=== PATIENT | female | born 1985 | race Caucasian/White ===

== ENCOUNTER → 2018-07-17 | Outpatient (CLI) | payer BC ==
[2018-07-17 10:38] LABS: Basophils % (A) 0 %; Eosinophils # (A) 0.1 k/uL (0-0.7); Eosinophils % (A) 2 %; HCT 38.6 % (34.0-46.0); HGB 12.4 gm/dL (11.4-16.0); Lymphocytes # (A) 1.4 k/uL (1.0-4.8); Lymphocytes % (A) 19 %; MCV 84.2 fL (80.0-100.0); Mean Platelet Volume 7.2; Monocytes # (A) 0.4 k/uL (0-1.0); Monocytes % (A) 5 %; Neutrophils # (A) 5.1 k/uL (1.3-7.7); Neutrophils % (A) 73 %; Platelet Count 323 k/uL (150-450); RBC 4.58 m/uL (3.80-5.40); RDW 13.5 % (11.5-15.5); WBC 7.1 k/uL (3.8-10.6)
== END ==
LOC: LABPAT 09:09
PROVIDERS: ATTEND Obstetrics & Gynecology
DX: Z01.818 Encounter for other preprocedural examination (principal)
CPT/HCPCS: 36415; 85025

== ENCOUNTER 2018-07-19 06:23 | Day surgery (SDC) | payer BC, OTHER ==
[2018-07-17 10:32] VITALS: BMI 26.5
--- NOTE | 2018-07-18 12:48 | P.HPOB ---
History of Present Illness H&P Date: 07/18/18 Chief Complaint: Missed . This patient is a pleasant 33-year-old 3 para 2 female estimated date of confinement 02/12/2019 estimated gestational age 10 weeks who's had serial ultrasounds showing an 8 week intrauterine without cardiac activity. His had no bleeding or pain at this time is requesting suction D&C for treatment. Review of Systems Genitourinary: Reports Menstruation: Reports amenorrhea Past Medical History Past Medical History: No Reported History Additional Past Medical History / Comment(s): LMP 05/08/18- MISSED AB History of Any Multi-Drug Resistant Organisms: None Reported Past Surgical History: Cholecystectomy Additional Past Surgical History / Comment(s): CHANEL (2009) Past Anesthesia/Blood Transfusion Reactions: No Reported Reaction Past Psychological History: No Psychological Hx Reported Smoking Status: Former smoker Past Alcohol Use History: None Reported Additional Past Alcohol Use History / Comment(s): QUIT SMOKING 2013, SMOKED FOR A COUPLE YEARS. Past Drug Use History: None Reported - Past Family History Mother Family Medical History: No Reported History Medications and Allergies Home Medications Medication Instructions Recorded Confirmed Type Acetaminophen [Tylenol Extra 1,000 mg PO DIRECTED PRN 07/17/18 07/17/18 History Strength] Allergies Allergy/AdvReac Type Severity Reaction Status Date / Time Penicillins AdvReac Rash/Hives Verified 07/17/18 10:14 Exam - OBG Physical Exam Abdomen: bowel sounds normal, no diffuse tenderness, no bruit present, no guarding noted, no hepatomegaly, no splenomegaly, no mass Vulva: both: normal Vagina: normal moisture, no discharge Cervix: no lesion, no discharge Uterus: enlarged (Uterus is consistent with 8 weeks) Results Patient has had serial ultrasounds showing a nonviable 8 week intrauterine . Blood type is B+. Assessment and Plan Assessment: This is a pleasant 33-year-old 3 para 2 female with known missed approximately 8 weeks gestation who is requesting suction D&C for treatment. Patient I discussed the surgery in detail including risks of infection, bleeding, possible uterine perforation. All the patient's questions been answered and a written consent is obtained. (1) Missed Status: Acute Code(s): O02.1 - MISSED SNOMED Code(s): 64891913
[~2018-07-19 06:23] MED LIST: DEXAMETHASONE SOD PHOSPHATE 10 MG/ML 1 ML VIAL IV ONE; HYDROmorphone 0.5 MG/0.5 ML SYRINGE IVP PRN; LACTATED RINGERS 1,000 ML IV SCH; LIDOCAINE 1% 20 ML VIAL (10MG/ML) FOR IV START INTRADERMA PRN; ONDANSETRON 4 MG/2 ML VIAL IVP ONE; Pre Op ABX Message 1 EACH MISC MISCELLANE ONE; SCOPOLAMINE 1.5MG/72HR PATCH TRANSDERM ONE
[2018-07-19] MEDS ORDERED: LACTATED RINGERS 1,000 ML IV ONE (06:48)
[2018-07-19] MEDS ORDERED: MIDAZOLAM (PF) 2 MG/2 ML VIAL IVP ONE (06:48)
[2018-07-19] MEDS ORDERED: MIDAZOLAM 2 MG/2 ML VIAL ONE (07:17)
[2018-07-19] MEDS ORDERED: KETOROLAC 30 MG/ML 1 ML VIAL ONE (07:17)
[2018-07-19] MEDS ORDERED: SUCCINYLCHOLINE CHLORIDE 100 MG/5 ML SYR IV ONE (07:17)
[2018-07-19] MEDS ORDERED: LIDOCAINE 1% INJ 10MG/ML (20 ML MDV) ONE (07:17)
[2018-07-19] MEDS ORDERED: PROPOFOL 10 MG/ML 20 ML VIAL IV ONE (07:17)
--- NOTE | 2018-07-19 07:49 | P.OP ---
Date of Procedure: 07/19/18 Preoperative Diagnosis: Missed 8 weeks' Postoperative Diagnosis: Same Procedure(s) Performed: Suction D&C Anesthesia: LUIGIA Surgeon: Thanh Ba Estimated Blood Loss (ml): 100 Urine output (ml): 50 Pathology: other (Uterine contents) Condition: stable Disposition: PACU Operative Findings: This patient had a generous amount of uterine tissue consistent with products of conception. Description of Procedure: This patient is taken to the operating room where she is laid in the supine position. She subsequently undergoes general endotracheal anesthesia without incident. With an adequate level of anesthesia she's placed in the dorsal lithotomy position. She has a vaginal perineal prep and drape. Examination under anesthesia shows a mid position uterus approximately 7 weeks size. I first drain the bladder for approximately 50 mL of clear urine. Weighted speculum placed in the posterior vagina and the anterior lip of cervix was grabbed with an Allis clamp. Cervix is gently dilated to allow a 9 curved suc tion curette easily and uterine cavity. Suction is applied and large amount of tissue is removed. Multiple passes are made until no further tissue was noted. A gentle sharp curettage of all 4 quadrants is then done again no further tissue was noted. Final pass with the suction curet shows decreased bleeding and no tissue. This point the procedure is ended. The Allis clamp and weighted specul um removed. All counts are correct 3. There are no complications. Patient is awakened from anesthesia and taken to the recovery room in satisfactory condition.
[2018-07-19 10:35] VITALS: BP 98/65; PULSE 73; RESP 16; TEMP 97.9
[2018-07-19] MEDS ORDERED: Rhogam IMMUNE GLOBULIN 1,500 UNIT/1 ML IM ONE (10:58)
== END 2018-07-19 11:18 | disposition home or self-care (01) ==
LOC: OR 06:23
PROVIDERS: ATTEND Obstetrics & Gynecology
DX: O02.1 Missed abortion (principal); Z3A.01 Less than 8 weeks gestation of pregnancy; Z90.49 Acquired absence of other specified parts of digestive tract; Z87.891 Personal history of nicotine dependence; Z88.0 Allergy status to penicillin
CPT/HCPCS: 86900; 86901; 88305; 86850; 59820; J2791; J2250 ×2; J1100; J2405; J2001; J1885; J0330; J2704

== ENCOUNTER 2021-08-22 05:45 | Inpatient (IN) | payer BC, OTHER ==
--- NOTE | 2021-08-21 17:56 | P.HPOB ---
History of Present Illness H&P Date: 08/21/21 Chief Complaint: Requested induction of labor This patient is a pleasant 36 yr female EDC 08/28/2021 estimated gestational age 39 1/7 weeks who presents to labor and delivery for requested induction of labor. Patient's is complicated by advanced maternal age. Patient had normal Materni T21 (46 XX) but did not desire MFM referral. She has had normal growth ultrasounds and testing. History of positive GBS with prior . Review of Systems Genitourinary: Reports Menstruation: Reports amenorrhea Past Medical History Past Medical History: No Reported History Additional Past Medical History / Comment(s): 2 previous vaginal deliveries. History of Any Multi-Drug Resistant Organisms: None Reported Past Surgical History: Cholecystectomy Past Anesthesia/Blood Transfusion Reactions: No Reported Reaction Past Psychological History: No Psychological Hx Reported Past Alcohol Use History: None Reported Past Drug Use History: None Reported - Past Family History Mother Family Medical History: No Reported History Medications and Allergies Home Medications Medication Instructions Recorded Confirmed Type Acetaminophen [Tylenol Extra 1,000 mg PO DIRECTED PRN 07/17/18 07/19/18 History Strength] Ibuprofen [Motrin] 600 mg PO Q6HR PRN #40 tab 07/19/18 Rx Allergies Allergy/AdvReac Type Severity Reaction Status Date / Time Penicillins AdvReac Rash/Hives Verified 07/19/18 07:12 Exam - OBG Physical Exam Abdomen: bowel sounds normal, no diffuse tenderness, no bruit present, no guarding noted, no hepatomegaly, no splenomegaly, no mass Vulva: both: normal Vagina: normal moisture, no discharge Cervix: no lesion (Cervix is 2 and soft), no discharge Uterus: enlarged (Fundal height is 39 cm) Results labs: B weak D (recommended Rhogam; given x 2 due to 1st trimester bleeding); [id number] neg, Glucola 130, GBS negative, most recent ultrasound (07/28) shows vtx 5#11oz (25-50%); Materni T21 46X,X Assessment and Plan Assessment: This is a pleasant 36 yr female estimated gestational age 39 1/7 weeks who presents to L&D for requested induction of labor. Plan is induction of labor and anticipate NVD. (1) 39 weeks gestation of Status: Acute Code(s): Z3A.39 - 39 WEEKS GESTATION OF SNOMED Code(s): 01928924 (2) Elderly multigravida Status: Acute Code(s): O09.529 - SUPERVISION OF ELDERLY MULTIGRAVIDA, UNSPECIFIED TRIMESTER SNOMED Code(s): 161100219 (3) Elective induction of labor planned Status: Acute Code(s): ROW1176 - SNOMED Code(s): 948604110
[2021-08-22] MEDS ORDERED: TERBUTALINE 1 MG/ML VIAL SQ PRN (05:59)
[2021-08-22] MEDS ORDERED: LIDOCAINE 1% (PF) 10 MG/ML (30 ML SDV) SQ PRN (05:59)
[2021-08-22] MEDS ORDERED: CARBOPROST TROMETHAMINE 250 MCG/ML 1 ML AMP IM PRN (05:59)
[2021-08-22] MEDS ORDERED: METHYLERGONOVINE 0.2 MG/ML 1 ML AMP IM PRN (05:59)
[2021-08-22] MEDS ORDERED: OXYTOCIN 30 UNITS/500 ML NS 30 UNIT in SALINE 1 500ML.BAG IV SCH ×2 (05:59→13:06)
[2021-08-22] MEDS ORDERED: OXYTOCIN 10 UNIT/ML 1 ML VIAL IM PRN (05:59)
[2021-08-22] MEDS ORDERED: CLINDAMYCIN 900 MG in DEXTROSE 5% IN WATER 50 ML IVPB SCH ×2 (06:00)
[2021-08-22] MEDS: LACTATED RINGERS 1,000 ML IV SCH ×2 (06:31→10:11)
[2021-08-22 07:44] LABS: Basophils % (A) 0 %; Eosinophils # (A) 0.1 k/uL (0-0.7); Eosinophils % (A) 1 %; HCT 35.6 % (34.0-46.0); HGB 11.3 gm/dL (11.4-16.0); Lymphocytes # (A) 1.7 k/uL (1.0-4.8); Lymphocytes % (A) 15 %; MCH 28.3 pg (25.0-35.0); MCHC 31.8 g/dL (31.0-37.0); Mean Platelet Volume 8.6; Monocytes # (A) 0.5 k/uL (0-1.0); Monocytes % (A) 4 %; Neutrophils # (A) 8.8 k/uL (1.3-7.7); Neutrophils % (A) 78 %; Platelet Count 261 k/uL (150-450); RDW 14.6 % (11.5-15.5); WBC 11.4 k/uL (3.8-10.6)
[2021-08-22] MEDS ORDERED: ROPIVACAINE 100 MG, fentaNYL (PF). 200 MCG in SODIUM CHLORIDE 0.9% 76 ML EPIDURAL ONE (10:42)
[2021-08-22] MEDS ORDERED: diphenhydrAMINE 50 MG/ML 1 ML VIAL IVP PRN (13:06)
[2021-08-22] MEDS ORDERED: Rhogam IMMUNE GLOBULIN 1,500 UNIT/1 ML IM ONE (13:06)
[2021-08-22] MEDS ORDERED: diphenhydrAMINE 25 MG CAP PO PRN (13:06)
[2021-08-22] MEDS ORDERED: HYDROCORTISONE 2.5% RECTAL CREAM 30 GM TUBE RECTAL PRN (13:06)
[2021-08-22] MEDS ORDERED: LANOLIN CREAM 5 GM TUBE TOPICAL PRN (13:06)
[2021-08-22] MEDS ORDERED: BENZOCAINE/MENTHOL SPRAY 1 GM/SPRAY AEROSOL TOPICAL PRN (13:06)
[2021-08-22] MEDS ORDERED: SIMETHICONE 80 MG CHEWABLE PO PRN (13:06)
[2021-08-22] MEDS ORDERED: bisacodyL 10 MG SUPP RECTAL PRN (13:06)
[2021-08-22] MEDS ORDERED: ZOLPIDEM 5 MG TAB PO PRN (13:06)
[2021-08-22 13:26] LABS: Basophils % (A) 0 %; Eosinophils % (A) 0 %; HCT 29.3 % (34.0-46.0); Lymphocytes # (A) 1.9 k/uL (1.0-4.8); Lymphocytes % (A) 14 %; MCH 28.4 pg (25.0-35.0); MCV 88.8 fL (80.0-100.0); Mean Platelet Volume 8.9; Monocytes # (A) 0.5 k/uL (0-1.0); Monocytes % (A) 4 %; Neutrophils # (A) 10.7 k/uL (1.3-7.7); Neutrophils % (A) 80 %; Platelet Count 226 k/uL (150-450); RBC 3.31 m/uL (3.80-5.40); RDW 14.1 % (11.5-15.5); WBC 13.4 k/uL (3.8-10.6)
[2021-08-22 13:30] LABS: HGB 9.4 gm/dL (11.4-16.0)
[2021-08-22] MEDS: SENNOSIDES-DOCUSATE SODIUM 1 EACH TAB PO SCH ×2 (14:47→19:54)
[2021-08-22] MEDS: CLINDAMYCIN 150 MG CAP PO SCH ×2 (16:20→22:17)
[2021-08-22] MEDS ORDERED: METHYLERGONOVINE 0.2 MG TAB PO ONE (17:00)
--- NOTE | 2021-08-22 17:48 | P.PROBDLV ---
Vaginal Delivery Note - . Vaginal Delivery Note: Normal vaginal delivery viable female Apgars 9 and 9 delivery time is 1231 hrs. Please see dictated H&P for intimate details of this patient's admission. Brief summary this is a pleasant 36-year-old 4 para 2 female 39 and one sevenths weeks gestation who is admitted to labor and delivery for requested induction of labor. On admission she is 2-3 cm dilated has artificial rupture membranes for clear fluid. Labor is augmented with Pitocin and she is given a dose of clindamycin due to a previous history of positive strep with her prior . Patient gets uncomfortable and does get an epidural for pain control with good relief. Patient quickly progresses at this point gets to complete. Patient pushes approximately 1 time and we have controlled delivery of the infant's head over the intact perineum. Mouth and nares are bulb suctioned. There is no evidence of a nuchal cord. With gentle downward traction we then have delivery the anterior and posterior shoulder and rest this infant's body. This is a vigorous viable female Apgars are 9 and 9 delivery time is 1231 hrs. Cord blood is obtained for Rh status. At this time we wait for the placenta and after approximately 20 minutes she begins bleeding profusely. I have her try to push the placenta out and this does not facilitate delivery. That she's continued bleeding at this time I discussed with her manual extraction of the placenta. Estimated blood loss just prior to removal is approximately 500 mL. With a gloved hand I explored the uterus and the placenta is quite adherent. I'm unable to get it out in 1 piece however after several passes and was able to remove what is felt to be the entirety of the placenta. Uterine surface is quite raw. I also take a Ray-Ericka sponge in place it into the uterus with a gloved hand and sweep the entire surface and I'm unable to remove any further tissue. At this time it is felt that all of the placenta is removed that is possible. It is removed in such a piecemeal fashion that I cannot guarantee complete removal although digital inspection of the uterine cavity indicates it is removed. She is given a dose of Methergine and IV Pitocin. She continues to have bleeding however with this and uterine massage bleeding does subside after approximately 20-30 minutes. Inspection of the perineum shows no lacerations no repairs required. Qualitative blood loss is approximately 935 mL. After continued prolonged observation her bleeding does appear to be normal at this time. Plan is to check a CBC, continue IV fluids and Methergine. Continue close observation. I did explain to the patient that unfortunately when she has such an adherent placenta there is always a chance there still pieces of placenta or membranes that I could not digitally feel her remove but as long as her bleeding is fine we'll just continue to watch.
[2021-08-22 18:36] LABS: Basophils % (A) 0 %; Eosinophils % (A) 0 %; HCT 31.9 % (34.0-46.0); Lymphocytes # (A) 1.8 k/uL (1.0-4.8); Lymphocytes % (A) 8 %; MCH 27.7 pg (25.0-35.0); MCHC 31.2 g/dL (31.0-37.0); MCV 88.6 fL (80.0-100.0); Mean Platelet Volume 8.9; Monocytes # (A) 0.7 k/uL (0-1.0); Monocytes % (A) 3 %; Neutrophils # (A) 19.9 k/uL (1.3-7.7); Neutrophils % (A) 88 %; Platelet Count 223 k/uL (150-450); RDW 14.1 % (11.5-15.5); WBC 22.7 k/uL (3.8-10.6)
[2021-08-22] MEDS: FERROUS SULFATE 325 MG TAB PO SCH (18:48)
[2021-08-22] MEDS: ACETAMINOPHEN TAB 325 MG TAB PO PRN (19:54)
[2021-08-23] MEDS: METHYLERGONOVINE 0.2 MG TAB PO SCH ×3 (00:36→15:59)
[2021-08-23] MEDS: ACETAMINOPHEN TAB 325 MG TAB PO PRN ×3 (01:11→16:06)
--- NOTE | 2021-08-23 06:07 | P.PN ---
Progress Note - Text Progress Note Date: 08/23/21 Patient is resting without new complaints. Vital signs are stable she is afebrile. She's had normal lochia overnight without any excessive bleeding. Uterus is firm nontender. Plan today is to recheck CBC, continue oral antibiotics and oral Methergine. We'll continue to watch her closely. I did rediscuss retained placenta my concerns about the uterine surface and close observation as time goes on. If she continues to well most likely will be able to discharge home tomorrow morning.
[2021-08-23 07:41] LABS: Basophils % (A) 0 %; Eosinophils # (A) 0.1 k/uL (0-0.7); Eosinophils % (A) 0 %; HCT 27.4 % (34.0-46.0); HGB 8.7 gm/dL (11.4-16.0); Lymphocytes # (A) 2.1 k/uL (1.0-4.8); Lymphocytes % (A) 16 %; MCH 28.3 pg (25.0-35.0); MCHC 31.7 g/dL (31.0-37.0); Mean Platelet Volume 8.5; Monocytes # (A) 0.6 k/uL (0-1.0); Monocytes % (A) 4 %; Neutrophils # (A) 10.4 k/uL (1.3-7.7); Neutrophils % (A) 78 %; Platelet Count 194 k/uL (150-450); RBC 3.08 m/uL (3.80-5.40); RDW 14.2 % (11.5-15.5); WBC 13.4 k/uL (3.8-10.6)
[2021-08-23] MEDS: SENNOSIDES-DOCUSATE SODIUM 1 EACH TAB PO SCH ×2 (07:45→22:04)
[2021-08-23] MEDS: FERROUS SULFATE 325 MG TAB PO SCH ×2 (07:45→17:26)
[2021-08-23] MEDS: CLINDAMYCIN 150 MG CAP PO SCH ×3 (09:08→22:05)
[2021-08-23] MEDS: IBUPROFEN 600 MG TAB PO PRN ×2 (13:01→22:04)
--- NOTE | 2021-08-24 06:09 | P.PNOBGVD ---
Subjective - Subjective Patient reports: Reports appetite normal, Reports voiding normally, Reports pain well controlled, Reports ambulating normally : doing well Objective - Latest Vital Signs Latest vital signs: Vital Signs Temp Pulse Resp BP 08/23/21 23:42 97.9 F 81 16 122/77 08/23/21 16:00 97.7 F 75 16 121/80 08/23/21 08:00 97.7 F 73 16 95/68 Intake and Output 08/23/21 08/23/21 08/24/21 14:59 22:59 06:59 Other: # Voids 1 1 2 - Exam Lungs: bilateral: normal Chest: Normal S1, Normal S2 Extremities: Present: normal Abdomen: Present: normal appearance, soft Uterus: Present: normal, firm - Labs Labs: Abnormal Lab Results - Last 24 Hours (Table) 08/23/21 Range/Units 07:13 WBC 13.4 H (3.8-10.6) k/uL RBC 3.08 L (3.80-5.40) m/uL Hgb 8.7 L (11.4-16.0) gm/dL Hct 27.4 L (34.0-46.0) % Neutrophils # 10.4 H (1.3-7.7) k/uL Assessment and Plan Assessment: day #2. Patient continues to do well without complaints. Vital signs are stable she's afebrile. Uterus is firm nontender and her lochia is normal. CBC yesterday showed a hemoglobin of 8.7 which is what I feel appropriate with her bleeding. Patient is felt to be stable for discharge home today. She'll continue on oral antibiotics and see me in 1 week for repeat hemoglobin check. At this time we'll continue routine care. (1) 39 weeks gestation of Current Visit: No Status: Acute Code(s): Z3A.39 - 39 WEEKS GESTATION OF SNOMED Code(s): 12366198 (2) Elderly multigravida Current Visit: No Status: Acute Code(s): O09.529 - SUPERVISION OF ELDERLY MULTIGRAVIDA, UNSPECIFIED TRIMESTER SNOMED Code(s): 746209365 (3) Elective induction of labor planned Current Visit: No Status: Acute Code(s): GNF4373 - SNOMED Code(s): 897026537
--- NOTE | 2021-08-24 06:15 | P.DS ---
Providers Date of admission: 08/22/21 05:45 Expected date of discharge: 08/24/21 Attending physician: Thanh Ba Primary care physician: Nadia Laws - Discharge Diagnosis(es) (1) 39 weeks gestation of Current Visit: No Status: Acute (2) Elderly multigravida Current Visit: No Status: Acute (3) Elective induction of labor planned Current Visit: No Status: Acute Hospital Course: Please see dictated H&P for intimate details of this patient's admission. In brief summary this is a pleasant 36-year-old 4 para 2 female estimated gestational age 39 and one sevenths weeks who is admitted to labor and delivery for elective induction of labor. Patient was on have a vaginal delivery viable female infant. Please see dictated delivery note. Delivery was complicated by retained placenta which had to be removed piecemeal. Patient had serial hemoglobins and was watched closely. She was placed on some oral antibiotics and oral Methergine. After the placenta was removed bleeding was completely normal. On day #2 patient's felt to be stable for discharge home follow up with me in 1 week for recheck of her hemoglobin. I did have a long discussion with her about concerns for bleeding given the nature of her retained placenta. She understands indications to call me or concerns. Procedures: Induction of labor normal vaginal delivery. Manual extraction of placenta Patient Condition at Discharge: Good Plan - Discharge Summary New Discharge Prescriptions: New Ibuprofen [Motrin] 600 mg PO Q6HR PRN #30 tab PRN Reason: Mild Pain (Scale 1 To 3) Clindamycin [Cleocin] 600 mg PO TID 5 Days #15 cap Ferrous Sulfate [Iron (65 MG Elemental)] 325 mg PO BID-W/MEALS #60 tab No Action Acetaminophen [Tylenol Extra Strength] 1,000 mg PO DIRECTED PRN PRN Reason: Pain Pnv,Calcium 72/Iron/Folic Acid [ Plus Tablet] 1 tab PO DAILY Discharge Medication List Acetaminophen [Tylenol Extra Strength] 1,000 mg PO DIRECTED PRN 07/17/18 [History] Pnv,Calcium 72/Iron/Folic Acid [ Plus Tablet] 1 tab PO DAILY 08/22/21 [History] Clindamycin [Cleocin] 600 mg PO TID 5 Days #15 cap 08/24/21 [Rx] Ferrous Sulfate [Iron (65 MG Elemental)] 325 mg PO BID-W/MEALS #60 tab 08/24/21 [Rx] Ibuprofen [Motrin] 600 mg PO Q6HR PRN #30 tab 08/24/21 [Rx] Follow up Appointment(s)/Referral(s): Thanh Ba MD [STAFF PHYSICIAN] - 10/03/21 11:15 am Patient Instructions/Handouts: Vaginal Delivery (DC), Iron Deficiency Anemia (GEN) Activity/Diet/Wound Care/Special Instructions: No intercourse or anything per vagina for 6 weeks. Please call if any fever, chills, excessive vaginal bleeding, and/or abdominal pain. Discharge Disposition: HOME SELF-CARE
[2021-08-24] MEDS: SENNOSIDES-DOCUSATE SODIUM 1 EACH TAB PO SCH (08:14)
[2021-08-24] MEDS: IBUPROFEN 600 MG TAB PO PRN ×2 (08:15→15:13)
[2021-08-24] MEDS: FERROUS SULFATE 325 MG TAB PO SCH (08:15)
[2021-08-24] MEDS: CLINDAMYCIN 150 MG CAP PO SCH ×2 (08:15→16:27)
[2021-08-24 09:19] VITALS: RESP 18
[2021-08-24] MEDS: ACETAMINOPHEN TAB 325 MG TAB PO PRN (10:16)
[2021-08-24 19:37] VITALS: BP 124/70; PULSE 77; TEMP 98.1
== END 2021-08-24 16:50 | disposition home or self-care (01) | DRG 807 ==
LOC: 4FBP 05:45
PROVIDERS: ADMIT Obstetrics & Gynecology; ATTEND Obstetrics & Gynecology
PROC: 10907ZC Drainage of Amniotic Fluid, Therapeutic from Products of Conception, Via Natural or Artificial Opening (ICD-10-PCS; principal; 2021-08-22)
PROC: 10E0XZZ Delivery of Products of Conception, External Approach (ICD-10-PCS; principal; 2021-08-22)
PROC: 4A0HXCZ Measurement of Products of Conception, Cardiac Rate, External Approach (ICD-10-PCS; principal; 2021-08-22)
PROC: 3E033VJ Introduction of Other Hormone into Peripheral Vein, Percutaneous Approach (ICD-10-PCS; principal; 2021-08-22)
DX: O72.1 Other immediate postpartum hemorrhage (principal); Z37.0 Single live birth; Z3A.39 39 weeks gestation of pregnancy; Z88.0 Allergy status to penicillin; Z90.49 Acquired absence of other specified parts of digestive tract
CPT/HCPCS: 85025; 85461; 86850; 86900; 86901